=== PATIENT | male | born 1965 | race Caucasian/White ===

== ENCOUNTER → 2025-01-30 12:11 | Outpatient (REF) | payer OTHER, SELFPAY | LOC: RAD 12:11 | PROVIDERS: ATTENDING PHYSICIAN Surgery; FAMILY PHYSICIAN Internal Medicine | DX: K43.2 Incisional hernia without obstruction or gangrene (principal) | CPT/HCPCS: 74177; Q9967 ==

== ENCOUNTER → 2025-01-30 14:20 | Outpatient (REF) | payer OTHER, SELFPAY | LOC: HWRAD 14:20 | PROVIDERS: ATTENDING PHYSICIAN Specialist; FAMILY PHYSICIAN Internal Medicine | DX: N28.1 Cyst of kidney, acquired (principal) | CPT/HCPCS: 76775 ==

== ENCOUNTER 2025-06-01 06:28 | Day surgery (SDC) | payer OTHER, SELFPAY ==
[2025-05-22 10:08] LABS: Hematocrit 44.4 % (39.0-52.0); Hemoglobin 15.5 g/dL (13.0-18.0); Mean Corp Hgb Conc. 34.9 g/dL (33.0-37.0); Mean Corpuscular Volume 93.3 fL (80.0-94.0); Platelet Count 213 10^3/uL (130-400); Red Cell Dist. Width 12.1 % (11.5-14.5)
[2025-05-22 10:26] LABS: Blood Urea Nitrogen 18 mg/dl (9-20); Calcium 9.1 mg/dl (8.4-10.2); Carbon Dioxide 25 mmol/L (22-30); Chloride 106 mmol/L (98-107); Glucose 111 mg/dl (70-99); Potassium 4.2 mmol/L (3.5-5.1); Sodium 139 mmol/L (135-145); eGFR > 60.00
[2025-05-25 13:29] VITALS: BMI 29.7
[2025-06-01] VITALS (11 sets, daily range): BP systolic 143–172; BP diastolic 87–102; BMI 29.7
[2025-06-01] MEDS: NORMOSOL-R/PLASMALYTE-A 1000 IV (10:51)
[2025-06-01] MEDS: TYLENOL 1000 MG PO (10:51)
--- NOTE | 2025-06-01 11:34 | HP.FOC2 ---
Focused History & Physical
Chief Complaint
HPI:
Chief Complaint: Incisional hernia
HPI / Indication for Planned Procedure: Patient is a 60-year-old male who previously underwent a trauma laparotomy -negative for acute injury who has developed a recurrent incisional hernia along the upper midline laparotomy incision. He has
previously undergone open incisional herniorrhaphy with mesh with Dr. Jackson in 2000 which was repaired with a Marlex mesh. He presents today for scheduled operative correction of his recurrent incisional hernia.
Relevant Past Medical History: Other (Allergic rhinitis, history of intracranial hemorrhage, right renal cyst)
Relevant Social History: Negative
Relevant Family History: Negative
Relevant Past Surgical History: Positive for (Negative trauma laparotomy, umbilical/incisional hernia repair with mesh)
Review of Systems
Review of Pertinent Systems: All Systems Negative
Medication
See Medication form for detailed medications: Yes
Medication List (including Herbals & OTC):
Vitamin D3 3 tab PO 1100 05/25/25
dextroamphetamine-amphetamine 20 mg tablet (Adderall) 20 mg PO DAILY 05/25/25
dextroamphetamine-amphetamine 30 mg tablet (Adderall) 15 mg PO .1100 AND 1400 05/25/25
losartan 100 mg tablet 100 mg PO DAILY 05/25/25
red yeast rice 1 cap PO DAILY 05/25/25
turmeric 1 cap PO DAILY 05/25/25
Medications Reviewed: Yes
Allergies and Reactions
Patient has Allergies: Yes
Noted Allergies and Reactions:
Allergy/AdvReac Type Severity Reaction Status Date / Time
pollen extracts Allergy seasonal Verified 06/01/25 10:34
allergies
Pertinent Physical Exam
All Other Systems: Negative
Head/Neck: Normal
Lungs: Normal
Heart: Normal
Abdomen: Other (Upper midline reducible incisional hernia, midline laparotomy surgical scar)
Extremities: Normal
Neurological: Normal
Diagnosis / Assessment
60-year-old male presenting for scheduled operative correction incisional hernia
Plan / Procedure
Robotic assisted laparoscopic repair incisional hernia with mesh
Anesthesia/Sedation to be done by Anesthesia Provider: Yes
--- NOTE | 2025-06-01 11:39 | W.SUR.PREOP ---
Pre-Operative Surgical Note
-
I have examined this patient prior to the performance of the scheduled procedure.
The patient's condition is unchanged from the time of the current History and
Physical and the patient is able to undergo the scheduled procedure.
--- NOTE | 2025-06-01 14:41 | W.IMMPOSTOP ---
Addendum entered and electronically signed by Jc Jang MD 06/01/25 14:55:
#[id number]
Original Note:
Surgical Immed Post Op Note
-
Primary Surgeon: Jc Jang MD
Assisting Surgeon: Ivette Berman PA-c
Pre-op Diagnosis: Incisional hernia
Post-op Diagnosis: Incisional hernias; total length 10 cm
Procedure Performed: Robotic assisted laparoscopic KAYLENE repair incisional hernias with mesh; Bard soft 20 cm x 15 cm
Anesthesia Type: GETA +0.25% Marcaine
Specimen / Cultures: None
Estimated Blood Loss: 10 mL
Complications: None immediate
Operative Findings: Multiple midline incisional hernias spanning length of prior laparotomy incision scar. Total vertical length of hernias 10 cm including fascial bridges. Maximal width of largest hernia 4 cm. Transabdominal preperitoneal
repair. Fascial closure of hernia defects with 0 PDS STRATAFIX. Underlay preperitoneal mesh positioning; Bard soft mesh 20 cm vertically; 15 cm wide centrally at largest hernia defect and 12 cm wide along cranial and caudal margin. Mesh secured
with numerous 2-0 Vicryl stitches to posterior sheath and linea alba. Peritoneal flap closed with 2-0 Monocryl STRATAFIX spiral suture.
The assistance of Ivette Berman PA-C was required due to the complexity of the procedure. During the procedure Ivette Berman PA-C assisted with port placement, robotic instrumentation and suture material exchanges, and closure of the surgical incision
sites. I was present for the entirety of the operative procedure.
== END 2025-06-01 16:36 | disposition home or self-care (01) ==
LOC: SDS 06:28
PROVIDERS: ATTENDING PHYSICIAN Surgery; FAMILY PHYSICIAN Internal Medicine
DX: K43.2 Incisional hernia without obstruction or gangrene (principal)
CPT/HCPCS: 49593; 36415; 80048; 85027; 93005; C1781